=== PATIENT | male | born 1970 | race Caucasian/White ===

== ENCOUNTER → 2017-12-15 | Outpatient (CLI) | payer SELFPAY ==
--- NOTE | 2017-12-15 09:50 | Diagnostic Imaging Report ---
INDICATION: Hepatitis C. FINDINGS: The pancreas is unremarkable. The liver is normal in size at 16.5 cm. No discrete liver mass is identified. The portal vein is patent and shows normal direction of flow. The gallbladder is without stones or sludge. No wall thickening or pericholecystic fluid is seen. There is no biliary ductal dilatation. The right kidney is unremarkable. There is no ascites. IMPRESSION: Unremarkable right upper quadrant ultrasound. Dictated by: Dictated on workstation # [id number]
--- NOTE | 2017-12-15 10:53 | Diagnostic Imaging Report ---
PROCEDURE: CT head without contrast. TECHNIQUE: Multiple contiguous axial images were obtained through the brain without the use of intravenous contrast. INDICATION: Memory loss. COMPARISON: No prior studies are available for comparison. FINDINGS: The ventricles and sulci are within normal limits. No sulcal effacement, midline shift or hemorrhage is detected. Cisterns are patent. The visualized paranasal sinuses demonstrate mucosal thickening of ethmoid air cells and the left maxillary sinus. IMPRESSION: 1. No acute intracranial process detected. 2. Paranasal sinus mucosal disease. Dictated by: Dictated on workstation # [id number]
== END ==
LOC: RAD 08:18
PROVIDERS: ATTEND Family Medicine
DX: R41.3 Other amnesia (principal); J32.9 Chronic sinusitis, unspecified; B19.20 Unspecified viral hepatitis C without hepatic coma
CPT/HCPCS: 70450; 76705

== ENCOUNTER 2019-03-14 17:15 | Emergency (ER) | payer SELFPAY ==
[~2019-03-14] VITALS: Ht 175.3 cm; Wt 66.7 kg
[2019-03-14] MEDS ORDERED: LACTATED RINGERS 1,000 ML IV ONE (17:38)
[2019-03-14] MEDS ORDERED: FAMOTIDINE 20MG/2ML IV (PEPCID) IV STA (17:38)
--- NOTE | 2019-03-14 17:43 | ED Abdominal Pain ---
General Chief Complaint: Abdominal/GI Problems Stated Complaint: STOMACH PAIN X 5 DAYS Nursing Triage Note: PATIENT AMBULATORY TO ER WITH COMPLAINT OF LOWER ABDOMINAL PAIN X 5 DAYS. PATIENT DENIES ANY NAUSEA, VOMITING OR DIARRHEA. Sepsis Screen: No Definite Risk Source of Information: Patient Exam Limitations: No Limitations (ASHA STARKS) History of Present Illness Date Seen by Provider: Mar 14, 2019 Time Seen by Provider: 17:30 Initial Comments Patient presents to ER by private conveyance with chief complaint of 5 days of abdominal pain in his midepigastric region that does not radiate anywhere. He says it's pretty much constant, 4-5 out of 10. He doesn't nausea vomiting yesterday. He does drink beer frequently and has been told the past she's had some liver damage as well as possibly hepatitis C within another doctor told him he did not have hepatitis. He does not follow with a doctor routinely. Has no history of pancreatitis. Does not think he has any other medical history is aware of. He did not try any antacids, Gas-X Tylenol or Motrin. He does take to aspirin and a because he doesn't want to of a heart attack but does not have a heart history. He's having any nausea right now. No fevers chills diarrhea. He did take some prunes and other fruit to try and have a bowel movement and has had several formed normal bowel movement that they did not improve the symptoms. If her foods do not make his symptoms any worse Nor does movement. He's had his appendix out and a ventral hernia repair. (ASHA STARKS) Allergies and Home Medications Allergies Coded Allergies: Penicillins (Unverified Allergy, Unknown, 03/20/15) Patient Home Medication List Home Medication List Reviewed: Yes (ASHA STARKS) Review of Systems Review of Systems Constitutional: No chills, No diaphoresis EENTM: No Blurred Vision, No Double Vision Respiratory: Denies Cough, Denies Shortness of Air Cardiovascular: Denies Chest Pain, Denies Lightheadedness Gastrointestinal: See HPI, Abdominal Pain; Denies Constipated, Denies Diarrhea Genitourinary: Denies Burning, Denies Discharge Musculoskeletal: No back pain, No joint pain Skin: No pruritus, No rash Psychiatric/Neurological: Denies Anxiety, Denies Depressed (ASHA STARKS) Past Xxppqul-Mlrrva-Muzjxh Hx Patient Social History Alcohol Use: Regular Use Alcohol Beverage of Choice: Beer Recreational Drug Use: No Smoking Status: Current Everyday Smoker Type Used: Cigarettes 2nd Hand Smoke Exposure: Yes Recent Foreign Travel: No Contact w/Someone Who Travel: No Recent Infectious Disease Expo: No Recent Hopitalizations: No (ASHA STARKS) Immunizations Up To Date Tetanus Booster (TDap): Unknown PED Vaccines UTD: Yes (ASHA STARKS) Seasonal Allergies Seasonal Allergies: Yes (ASHA STARKS) Past Medical History Surgeries: Yes (HERNIA REPAIR) Appendectomy, Orthopedic, Tonsillectomy Respiratory: No Cardiac: No Neurological: No Reproductive Disorders: No Gastrointestinal: No Musculoskeletal: No Endocrine: No Cancer: No Psychosocial: No Integumentary: No Blood Disorders: No (ASHA STARKS) Family Medical History Patient reports no known family medical history. Physical Exam Vital Signs Vital Signs - First Documented 03/14/19 17:21 Temp 98.5 Pulse 96 Resp 18 B/P (MAP) 152/95 (114) Pulse Ox 96 (BERNOT,JASON) Vital Signs Capillary Refill : Less Than 3 Seconds (ASHA STARKS) Height/Weight/BMI Height: 5'9.00" Weight: 147lbs. 4.0oz. [id number]; BMI Method:Stated General Appearance: WD/WN, no apparent distress (smiles) HEENT: PERRL/EOMI, normal ENT inspection, pharynx normal Respiratory: no respiratory distress, no accessory muscle use Cardiovascular: normal peripheral pulses, regular rate, rhythm, no edema Peripheral Pulses: 2+ Dorsalis Pedis (R), 2+ Left Dors-Pedis (L) Gastrointestinal: normal bowel sounds, soft, no organomegaly; No rebound; tenderness (midepigastric region but no Wylie sign. 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, alert, oriented x 3 Skin: normal color, warm/dry (ASHA STARKS) Progress/Results/Core Measures Results/Orders Lab Results Laboratory Tests Test 03/14/19 17:36 03/14/19 17:42 Range/Units White Blood Count 6.2 4.3-11.0 10^3/uL Red Blood Count 4.57 4.35-5.85 10^6/uL Hemoglobin 15.6 13.3-17.7 G/DL Hematocrit 44 40-54 % Mean Corpuscular Volume 97 80-99 FL Mean Corpuscular Hemoglobin 34 25-34 PG Mean Corpuscular Hemoglobin Concent 35 32-36 G/DL Red Cell Distribution Width 13.8 10.0-14.5 % Platelet Count 92 L 130-400 10^3/uL Mean Platelet Volume 9.3 7.4-10.4 FL Neutrophils (%) (Auto) 71 42-75 % Lymphocytes (%) (Auto) 20 12-44 % Monocytes (%) (Auto) 8 0-12 % Eosinophils (%) (Auto) 1 0-10 % Basophils (%) (Auto) 1 0-10 % Neutrophils # (Auto) 4.3 1.8-7.8 X 10^3 Lymphocytes # (Auto) 1.3 1.0-4.0 X 10^3 Monocytes # (Auto) 0.5 0.0-1.0 X 10^3 Eosinophils # (Auto) 0.0 0.0-0.3 10^3/uL Basophils # (Auto) 0.0 0.0-0.1 10^3/uL Prothrombin Time 12.6 12.2-14.7 SEC INR Comment 0.9 0.8-1.4 Activated Partial Thromboplast Time 27 24-35 SEC Sodium Level 138 135-145 MMOL/L Potassium Level 3.3 L 3.6-5.0 MMOL/L Chloride Level 101 98-107 MMOL/L Carbon Dioxide Level 21 21-32 MMOL/L Anion Gap 16 H 5-14 MMOL/L Blood Urea Nitrogen 8 7-18 MG/DL Creatinine 0.89 0.60-1.30 MG/DL Estimat Glomerular Filtration Rate > 60 BUN/Creatinine Ratio 9 Glucose Level 189 H 70-105 MG/DL Calcium Level 9.4 8.5-10.1 MG/DL Corrected Calcium 9.0 8.5-10.1 MG/DL Magnesium Level 1.9 1.8-2.4 MG/DL Total Bilirubin 0.9 0.1-1.0 MG/DL Aspartate Amino Transf (AST/SGOT) 200 H 5-34 U/L Alanine Aminotransferase (ALT/SGPT) 133 H 0-55 U/L Alkaline Phosphatase 112 40-136 U/L C-Reactive Protein High Sensitivity 0.63 H 0.00-0.50 MG/DL Total Protein 7.9 6.4-8.2 GM/DL Albumin 4.5 3.2-4.5 GM/DL Lipase 516 H 8-78 U/L Serum Alcohol 313 *H <10 MG/DL Urine Color YELLOW Urine Clarity CLEAR Urine pH 7 5-9 Urine Specific [place] 1.005 L 1.016-1.022 Urine Protein 1+ H NEGATIVE Urine Glucose (UA) NEGATIVE NEGATIVE Urine Ketones NEGATIVE NEGATIVE Urine Nitrite NEGATIVE NEGATIVE Urine Bilirubin NEGATIVE NEGATIVE Urine Urobilinogen NORMAL NORMAL MG/DL Urine Leukocyte Esterase NEGATIVE NEGATIVE Urine RBC (Auto) NEGATIVE NEGATIVE Urine RBC NONE /HPF Urine WBC NONE /HPF Urine Squamous Epithelial Cells RARE /HPF Urine Crystals NONE /LPF Urine Bacteria NEGATIVE /HPF Urine Casts NONE /LPF Urine Mucus NEGATIVE /LPF Urine Culture Indicated NO Urine Opiates Screen NEGATIVE NEGATIVE Urine Oxycodone Screen NEGATIVE NEGATIVE Urine Methadone Screen NEGATIVE NEGATIVE Urine Propoxyphene Screen NEGATIVE NEGATIVE Urine Barbiturates Screen NEGATIVE NEGATIVE Ur Tricyclic Antidepressants Screen NEGATIVE NEGATIVE Urine Phencyclidine Screen NEGATIVE NEGATIVE Urine Amphetamines Screen NEGATIVE NEGATIVE Urine Methamphetamines Screen NEGATIVE NEGATIVE Urine Benzodiazepines Screen NEGATIVE NEGATIVE Urine Cocaine Screen NEGATIVE NEGATIVE Urine Cannabinoids Screen NEGATIVE NEGATIVE (JASON SILVA) Medications Given in ED (JASON SILVA) Vital Signs/I&O 03/14/19 03/14/19 17:21 18:50 Temp 98.5 Pulse 96 87 Resp 18 16 B/P (MAP) 152/95 (114) 144/96 (112) Pulse Ox 96 97 (JASON SILVA) Blood Pressure Mean: 114 Progress Progress Note : Time: 18:08 Progress Note Possible pancreatitis. Gastritis. We'll order a GI cocktail to start which the patient remarks did help but didn't take all of his discomfort away. We'll give him some fluids in case it is pancreatitis and check labs to include urinalysis , UDS. (ASHA STARKS) Progress Note : Progress Note 1818: I have informed the patient and his laboratory findings and the need for a CT scan of his abdomen and pelvis. He agreed to this at this time. CT was ordered. 183: Nursing staff reports that patient wishes to leave the hospital AGAINST MEDICAL ADVICE. This was prior to his CT scan being completed. The patient was informed of the benefits of staying and risks of leaving and agrees to those risks. AMA papers were signed. (JASON SILVA) Transfer of Care Time: 18:09 Care transferred to: Jason Lei nurse practitioner (ASHA STARKS) Departure Impression Primary Impression: Alcoholism /alcohol abuse Additional Impressions: Pancreatitis Left against medical advice Disposition: 07 AGAINST MEDICAL ADVICE Condition: Against Medical Advice Departure-Patient Inst. Referrals: NO,LOCAL PHYSICIAN (PCP/Family) Primary Care Physician ASHA STARKS Mar 14, 2019 17:43 JASON SILVA Mar 14, 2019 19:28
[2019-03-14] MEDS ORDERED: LIDOCAINE 2% VISCOUS 15 ML UDC PO ONE (17:45)
[2019-03-14] MEDS ORDERED: ANTACID SUSP 30 ML UDC (MYLANTA) PO ONE (17:45)
[2019-03-14 17:48] LABS: BILIRUBIN,URINE NEGATIVE (NEGATIVE); CLARITY,URINE CLEAR; COLOR,URINE YELLOW; GLUCOSE, URINE (UA) NEGATIVE (NEGATIVE); KETONES,URINE NEGATIVE (NEGATIVE); LEUKOCYTE ESTERASE ,URINE NEGATIVE (NEGATIVE); NITRITE,URINE NEGATIVE (NEGATIVE); PH,URINE 7 (5-9); PROTEIN,URINE 1+ (NEGATIVE); UROBILINOGEN,URINE NORMAL (NORMAL)
[2019-03-14 17:54] LABS: BASOPHILS % (AUTO) 1 % (0-10); EOSINOPHILS % (AUTO) 1 % (0-10); HEMATOCRIT 44 % (40-54); HEMOGLOBIN 15.6 G/DL (13.3-17.7); LYMPHOCYTES # (AUTO) 1.3 X 10^3 (1.0-4.0); LYMPHOCYTES % (AUTO) 20 % (12-44); MEAN CORPUSCULAR HEMOGLOBIN 34 PG (25-34); MEAN CORPUSCULAR HGB CONC 35 G/DL (32-36); MEAN CORPUSCULAR VOLUME 97 FL (80-99); MEAN PLATELET VOLUME 9.3 FL (7.4-10.4); MONOCYTES # (AUTO) 0.5 X 10^3 (0.0-1.0); MONOCYTES % (AUTO) 8 % (0-12); NEUTROPHILS # (AUTO) 4.3 X 10^3 (1.8-7.8); NEUTROPHILS % (AUTO) 71 % (42-75); PLATELET COUNT 92 10^3/uL (130-400); RED CELL DISTRIBUTION WIDTH 13.8 % (10.0-14.5); WHITE BLOOD COUNT 6.2 10^3/uL (4.3-11.0)
[2019-03-14 17:56] LABS: BACTERIA,URINE NEGATIVE /HPF; SQUAMOUS EPITHELIAL CELL,UR RARE /HPF
[2019-03-14 18:00] LABS: INR 0.9 (0.8-1.4); PROTHROMBIN TIME PATIENT 12.6 SEC (12.2-14.7)
[2019-03-14 18:09] LABS: ALANINE AMINOTRANSFERASE 133 U/L (0-55); ALBUMIN 4.5 GM/DL (3.2-4.5); ALKALINE PHOSPHATASE 112 U/L (40-136); BILIRUBIN,TOTAL 0.9 MG/DL (0.1-1.0); BUN/CREATININE RATIO 9; CALCIUM 9.4 MG/DL (8.5-10.1); CARBON DIOXIDE 21 MMOL/L (21-32); CHLORIDE 101 MMOL/L (98-107); CREATININE SERUM 0.89 MG/DL (0.60-1.30); GFR ESTIMATED > 60; GLUCOSE 189 MG/DL (70-105); LIPASE 516 U/L (8-78); MAGNESIUM 1.9 MG/DL (1.8-2.4); POTASSIUM 3.3 MMOL/L (3.6-5.0); SODIUM 138 MMOL/L (135-145); TOTAL PROTEIN 7.9 GM/DL (6.4-8.2)
[2019-03-14 18:09] LABS: AMPHETAMINE SCREEN, URINE NEGATIVE (NEGATIVE); BARBITURATE SCREEN URINE NEGATIVE (NEGATIVE); BENZODIAZEPINES SCREEN URINE NEGATIVE (NEGATIVE); CANNABINOID SCREEN, URINE NEGATIVE (NEGATIVE); COCAINE SCREEN URINE NEGATIVE (NEGATIVE); METHADONE STAT NEGATIVE (NEGATIVE); METHAMPHETAMINE SCREEN URINE S NEGATIVE (NEGATIVE); OPIATE SCREEN URINE NEGATIVE (NEGATIVE); OXYCODONE STAT NEGATIVE (NEGATIVE); PROPOXYPHENE STAT NEGATIVE (NEGATIVE); TRICYCLIC ANTIDEPRESSANTS SCRE NEGATIVE (NEGATIVE)
--- NOTE | 2019-03-14 18:48 | NUR ---
pt to ED desk stating he needs to leave d/t his sister being in waiting area waiting for him, pt states he wishes to sign out of ED AMA
[2019-03-14 18:50] VITALS: BP 144/96
== END 2019-03-14 18:49 | disposition left against medical advice (07) ==
LOC: EDUNIT# 17:15 → ER 17:16
DX: F10.129 Alcohol abuse with intoxication, unspecified (principal); K85.90 Acute pancreatitis without necrosis or infection, unspecified; F17.210 Nicotine dependence, cigarettes, uncomplicated; Z79.82 Long term (current) use of aspirin; Z88.0 Allergy status to penicillin; Z90.49 Acquired absence of other specified parts of digestive tract; Z98.890 Other specified postprocedural states; Z90.89 Acquired absence of other organs
CPT/HCPCS: 36415; 80053; 80306; 80320; 81000; 83690; 83735; 85025; 85610; 85730; 86141; 96374

== ENCOUNTER 2020-04-05 07:20 | Emergency (ER) | payer SELFPAY ==
[~2020-04-05] VITALS: Ht 175 cm; Wt 72.2 kg
[2020-04-05] MEDS ORDERED: LEVO25TA5 (07:38)
[2020-04-05] MEDS ORDERED: LACTATED RINGERS 1,000 ML IV ONE (07:59)
[2020-04-05 08:06] LABS: BASOPHILS # (AUTO) 0.1 10^3/uL (0.0-0.1); BASOPHILS % (AUTO) 1 % (0-10); EOSINOPHILS # (AUTO) 0.1 10^3/uL (0.0-0.3); EOSINOPHILS % (AUTO) 1 % (0-10); HEMATOCRIT 45 % (40-54); HEMOGLOBIN 16.4 G/DL (13.3-17.7); LYMPHOCYTES # (AUTO) 3.2 X 10^3 (1.0-4.0); LYMPHOCYTES % (AUTO) 44 % (12-44); MEAN CORPUSCULAR HEMOGLOBIN 33 PG (25-34); MEAN CORPUSCULAR HGB CONC 36 G/DL (32-36); MEAN CORPUSCULAR VOLUME 91 FL (80-99); MEAN PLATELET VOLUME 9.2 FL (7.4-10.4); MONOCYTES % (AUTO) 14 % (0-12); NEUTROPHILS # (AUTO) 2.9 X 10^3 (1.8-7.8); NEUTROPHILS % (AUTO) 40 % (42-75); PLATELET COUNT 319 10^3/uL (130-400); RED CELL DISTRIBUTION WIDTH 13.5 % (10.0-14.5); WHITE BLOOD COUNT 7.2 10^3/uL (4.3-11.0)
[2020-04-05 08:10] LABS: ALBUMIN 4.4 GM/DL (3.2-4.5); CHLORIDE 102 MMOL/L (98-107); POTASSIUM 3.3 MMOL/L (3.6-5.0); SODIUM 136 MMOL/L (135-145)
[2020-04-05 08:11] LABS: AMYLASE 35 U/L (25-125)
[2020-04-05 08:12] LABS: CALCIUM 8.8 MG/DL (8.5-10.1)
[2020-04-05 08:13] LABS: GLUCOSE 136 MG/DL (70-105)
[2020-04-05 08:14] LABS: CARBON DIOXIDE 20 MMOL/L (21-32)
[2020-04-05 08:15] LABS: BILIRUBIN,TOTAL 0.5 MG/DL (0.1-1.0)
[2020-04-05 08:16] LABS: ALKALINE PHOSPHATASE 77 U/L (40-136)
[2020-04-05 08:17] LABS: CREATININE SERUM 0.85 MG/DL (0.60-1.30); GFR ESTIMATED > 60
[2020-04-05 08:18] LABS: BUN/CREATININE RATIO 12
[2020-04-05 08:19] LABS: ALANINE AMINOTRANSFERASE 38 U/L (0-55)
[2020-04-05 08:20] LABS: LIPASE 47 U/L (8-78)
[2020-04-05 08:27] LABS: BILIRUBIN,URINE NEGATIVE (NEGATIVE); CLARITY,URINE CLEAR; COLOR,URINE YELLOW; GLUCOSE, URINE (UA) NEGATIVE (NEGATIVE); KETONES,URINE NEGATIVE (NEGATIVE); LEUKOCYTE ESTERASE ,URINE NEGATIVE (NEGATIVE); NITRITE,URINE NEGATIVE (NEGATIVE); PH,URINE 6.5 (5-9); PROTEIN,URINE NEGATIVE (NEGATIVE)
[2020-04-05 08:38] LABS: BACTERIA,URINE NEGATIVE /HPF
[2020-04-05] MEDS ORDERED: fentaNYL INJECTION 100 MCG/2 ML AMP IVP STA (08:39)
[2020-04-05 08:44] LABS: AMPHETAMINE SCREEN, URINE NEGATIVE (NEGATIVE); BARBITURATE SCREEN URINE NEGATIVE (NEGATIVE); BENZODIAZEPINES SCREEN URINE NEGATIVE (NEGATIVE); CANNABINOID SCREEN, URINE NEGATIVE (NEGATIVE); COCAINE SCREEN URINE NEGATIVE (NEGATIVE); METHAMPHETAMINE SCREEN URINE S NEGATIVE (NEGATIVE); OPIATE SCREEN URINE NEGATIVE (NEGATIVE); TRICYCLIC ANTIDEPRESSANTS SCRE NEGATIVE (NEGATIVE)
[2020-04-05 08:45] LABS: METHADONE STAT NEGATIVE (NEGATIVE); OXYCODONE STAT NEGATIVE (NEGATIVE); PROPOXYPHENE STAT NEGATIVE (NEGATIVE)
--- NOTE | 2020-04-05 08:57 | ED Abdominal Pain ---
General Chief Complaint: Abdominal/GI Problems Stated Complaint: LOWER LEFT STOMACH PAIN Nursing Triage Note: ARRIVED VIA AMB TO ROOM 06 WITHOUT DIFFICULTY. COMPLAINS OF LEFT LOWER ABD PAIN X2 WEEKS. HX OF PANCREATITIS AND ETOH. STATES HE LEFT AMA THE LAST TIME HE WAS HERE AND ENDED UP GOING TO A HOSPITAL IN [place] AND WAS DX. Sepsis Screen: No Definite Risk Source of Information: Patient Exam Limitations: No Limitations History of Present Illness Date Seen by Provider: April 05, 2020 Time Seen by Provider: 07:50 Initial Comments Here with complaint of mid abdominal pain that has been going on worse this morning but over the last 2 weeks. States that he drinks a lot of alcohol daily. Has history of greater than case of day here daily. He's never had seizure with withdrawal. Reports that he will start drinking each day when he started shaking. Denies nausea, vomiting or diarrhea. No report of blood in his stool. N o report of fever. Main complaint is abdominal pain. Timing/Duration: 1 Week, Getting Worse Severity/Quality: Moderate, Aching Location: Epigastric Radiation: No Radiation Activities at Onset: None Modifying Factors: Worsens With Eating Associated Symptoms: No Chest Pain, No Fever/Chills; Fatigue; No Nausea/Vomiting, No Shortness of Air, No Swelling/Mass in Abdomen, No Weakness Allergies and Home Medications Allergies Coded Allergies: Penicillins (Unverified Allergy, Unknown, 03/20/15) Patient Home Medication List Home Medication List Reviewed: Yes Review of Systems Review of Systems Constitutional: see HPI; No chills, No fever EENTM: No Symptoms Reported Respiratory: No Symptoms Reported Cardiovascular: No Symptoms Reported Gastrointestinal: See HPI, Abdominal Pain; Denies Diarrhea, Denies Nausea, Denies Vomiting Genitourinary: No Symptoms Reported Musculoskeletal: no symptoms reported Skin: no symptoms reported All Other Systems Reviewed Negative Unless Noted: Yes Past Tvlyozv-Nupdce-Zyxbfd Hx Past Med/Social Hx: Reviewed Nursing Past Med/Soc Hx Patient Social History Alcohol Use: Regular Use Number of Drinks Today: AA Alcohol Beverage of Choice: Beer, Whiskey Recreational Drug Use: No Smoking Status: Current Everyday Smoker Type Used: Cigarettes 2nd Hand Smoke Exposure: Yes Recent Foreign Travel: No Contact w/Someone Who Travel: No Recent Infectious Disease Expo: No Recent Hopitalizations: No Immunizations Up To Date Tetanus Booster (TDap): Unknown PED Vaccines UTD: Yes Seasonal Allergies Seasonal Allergies: Yes Past Medical History Surgeries: Yes (HERNIA REPAIR) Appendectomy, Orthopedic, Tonsillectomy Respiratory: No Cardiac: No Neurological: No Reproductive Disorders: No Genitourinary: No Gastrointestinal: Yes Pancreatitis Musculoskeletal: No Endocrine: No HEENT: No Cancer: No Psychosocial: No Integumentary: No Blood Disorders: No Family Medical History Reviewed Nursing Family Hx Patient reports no known family medical history. No Pertinent Family Hx Physical Exam Vital Signs Vital Signs - First Documented 04/05/20 07:25 Temp 37.2 Pulse 110 Resp 16 B/P (MAP) 153/109 (124) Pulse Ox 96 O2 Delivery Room Air Capillary Refill : Less Than 3 Seconds Height/Weight/BMI Height: 5'9.00" Weight: 147lbs. 4.0oz. 66.491319yc; 23.00 BMI Method:Stated General Appearance: WD/WN, no apparent distress HEENT: PERRL/EOMI, pharynx normal Neck: full range of motion, supple Respiratory: lungs clear, normal breath sounds Cardiovascular: no murmur, tachycardia Gastrointestinal: soft; No guarding, No rebound; tenderness (mid abdomen) Extremities: non-tender, normal inspection Back: normal inspection, no CVA tenderness, no vertebral tenderness Neurologic/Psychiatric: alert, oriented x 3 Skin: normal color, warm/dry Progress/Results/Core Measures Results/Orders Lab Results Laboratory Tests Test 04/05/20 07:40 04/05/20 08:20 Range/Units White Blood Count 7.2 4.3-11.0 10^3/uL Red Blood Count 4.98 4.35-5.85 10^6/uL Hemoglobin 16.4 13.3-17.7 G/DL Hematocrit 45 40-54 % Mean Corpuscular Volume 91 80-99 FL Mean Corpuscular Hemoglobin 33 25-34 PG Mean Corpuscular Hemoglobin Concent 36 32-36 G/DL Red Cell Distribution Width 13.5 10.0-14.5 % Platelet Count 319 130-400 10^3/uL Mean Platelet Volume 9.2 7.4-10.4 FL Neutrophils (%) (Auto) 40 L 42-75 % Lymphocytes (%) (Auto) 44 12-44 % Monocytes (%) (Auto) 14 H 0-12 % Eosinophils (%) (Auto) 1 0-10 % Basophils (%) (Auto) 1 0-10 % Neutrophils # (Auto) 2.9 1.8-7.8 X 10^3 Lymphocytes # (Auto) 3.2 1.0-4.0 X 10^3 Monocytes # (Auto) 1.0 0.0-1.0 X 10^3 Eosinophils # (Auto) 0.1 0.0-0.3 10^3/uL Basophils # (Auto) 0.1 0.0-0.1 10^3/uL Sodium Level 136 135-145 MMOL/L Potassium Level 3.3 L 3.6-5.0 MMOL/L Chloride Level 102 98-107 MMOL/L Carbon Dioxide Level 20 L 21-32 MMOL/L Anion Gap 14 5-14 MMOL/L Blood Urea Nitrogen 10 7-18 MG/DL Creatinine 0.85 0.60-1.30 MG/DL Estimat Glomerular Filtration Rate > 60 BUN/Creatinine Ratio 12 Glucose Level 136 H 70-105 MG/DL Calcium Level 8.8 8.5-10.1 MG/DL Corrected Calcium 8.5 8.5-10.1 MG/DL Total Bilirubin 0.5 0.1-1.0 MG/DL Aspartate Amino Transf (AST/SGOT) 45 H 5-34 U/L Alanine Aminotransferase (ALT/SGPT) 38 0-55 U/L Alkaline Phosphatase 77 40-136 U/L C-Reactive Protein High Sensitivity 0.08 0.00-0.50 MG/DL Total Protein 8.0 6.4-8.2 GM/DL Albumin 4.4 3.2-4.5 GM/DL Amylase Level 35 25-125 U/L Lipase 47 8-78 U/L Serum Alcohol 304 *H <10 MG/DL Urine Color YELLOW Urine Clarity CLEAR Urine pH 6.5 5-9 Urine Specific [place] <=1.005 1.016-1.022 Urine Protein NEGATIVE NEGATIVE Urine Glucose (UA) NEGATIVE NEGATIVE Urine Ketones NEGATIVE NEGATIVE Urine Nitrite NEGATIVE NEGATIVE Urine Bilirubin NEGATIVE NEGATIVE Urine Urobilinogen 0.2 < = 1.0 MG/DL Urine Leukocyte Esterase NEGATIVE NEGATIVE Urine RBC (Auto) NEGATIVE NEGATIVE Urine RBC NONE /HPF Urine WBC NONE /HPF Urine Crystals NONE /LPF Urine Bacteria NEGATIVE /HPF Urine Casts NONE /LPF Urine Mucus NEGATIVE /LPF Urine Culture Indicated NO Urine Opiates Screen NEGATIVE NEGATIVE Urine Oxycodone Screen NEGATIVE NEGATIVE Urine Methadone Screen NEGATIVE NEGATIVE Urine Propoxyphene Screen NEGATIVE NEGATIVE Urine Barbiturates Screen NEGATIVE NEGATIVE Ur Tricyclic Antidepressants Screen NEGATIVE NEGATIVE Urine Phencyclidine Screen NEGATIVE NEGATIVE Urine Amphetamines Screen NEGATIVE NEGATIVE Urine Methamphetamines Screen NEGATIVE NEGATIVE Urine Benzodiazepines Screen NEGATIVE NEGATIVE Urine Cocaine Screen NEGATIVE NEGATIVE Urine Cannabinoids Screen NEGATIVE NEGATIVE My Orders Orders - TERA PEREZ MD Amylase (04/05/20 07:59) Cbc With Automated Diff (04/05/20 07:59) Comprehensive Metabolic Panel (04/05/20 07:59) Hs C Reactive Protein (04/05/20 07:59) Drug Screen Stat (Urine) (04/05/20 07:59) Lipase (04/05/20 07:59) Ua Culture If Indicated (04/05/20 07:59) Ed Iv/Invasive Line Start (04/05/20 07:59) Lactated Ringers (Lr 1000 Ml Iv Solution (04/05/20 07:59) Ct Abdomen/Pelvis W (04/05/20 08:27) Fentanyl Injection (Sublimaze Injection (04/05/20 08:39) Alcohol (04/05/20 08:50) Iohexol Injection (Omnipaque 350 Mg/Ml 1 (04/05/20 09:00) Received Contrast (Hold Metformin- Contr (04/05/20 09:00) Ns (Ivpb) (Sodium Chloride 0.9% Ivpb Bag (04/05/20 09:00) Medications Given in ED Current Medications Medications Dose Ordered Sig/Valeria Route Start Time Stop Time Status Last Admin Dose Admin Iohexol 91 ml ONCE ONCE IV 04/05/20 09:00 04/05/20 09:01 DC 04/05/20 09:08 91 ML Lactated Ringer's 1,000 ml @ 0 mls/hr Q0M ONCE IV 04/05/20 07:59 04/05/20 08:07 DC 04/05/20 08:09 1,000 MLS/HR Sodium Chloride 100 ml ONCE ONCE IV 04/05/20 09:00 04/05/20 09:01 DC 04/05/20 09:08 80 ML Vital Signs/I&O 04/05/20 07:25 Temp 37.2 Pulse 110 Resp 16 B/P (MAP) 153/109 (124) Pulse Ox 96 O2 Delivery Room Air Blood Pressure Mean: 124 Progress Progress Note : Progress Note Seen and evaluated. IV, labs, UA, LR [address] abdomen pelvis and fentanyl 50 g IV ordered later. Monitor patient. 1027: Labs and CT reviewed. No acute findings. I did discuss with the patient at length regarding alcoholism, gastritis and turns about the adverse effects of chronic alcohol abuse. Offered him information to a few programs in the area including the addiction treatment services at [facility]. He states he will follow up. Ordered outpatient Carafate and he was given information to call Dr. Stevenson for follow- up as he likely needs upper endoscopy. Patient states he would. Diagnostic Imaging Diagonstic Imaging: CT Plain Films/CT/US/NM/MRI: abdomen, pelvis Comments [facility], [place] NAME: MATEO [facility] REC#: [id number] PT STATUS: REG ER : 1970 PHYSICIAN: TERA PEREZ MD ADMIT DATE: 04/05/20/ER Draft Date of Exam:04/05/20 CT ABDOMEN/PELVIS W PROCEDURE: CT abdomen and pelvis with contrast. TECHNIQUE: Multiple contiguous axial images were obtained through the abdomen and pelvis after administration of intravenous contrast. Auto Exposure Controls were utilized during the CT exam to meet ALARA standards for radiation dose reduction. INDICATION: Abdominal pain and questionable pancreatitis. No prior studies are available for comparison. The lung bases are clear. Liver does show some mild generalized low density consistent with hepatic steatosis. No discrete liver mass is detected. The gallbladder is unremarkable. No biliary ductal dilatation is seen. The pancreas demonstrates homogeneous parenchymal enhancement. No definite peripancreatic inflammatory changes or peripancreatic fluid collection is seen. The spleen is unremarkable. No adrenal mass is detected. Kidneys are unremarkable. No hydronephrosis is detected. The aorta is non-aneurysmal. Bowel loops appear to be nonobstructive. There is diverticulosis of the descending and sigmoid colon but no evidence of acute diverticulitis. There is no free fluid or fluid collection identified. The bladder is unremarkable. No definite abdominal or pelvic lymphadenopathy is seen. IMPRESSION: 1. No definite CT evidence of acute pancreatitis. 2. Hepatic steatosis. 3. Uncomplicated diverticulosis. Dictated on workstation # [id number] Dict: 04/05/20 0921 Trans: 04/05/20 0927 [id number] Interpreted by: VERN MELENDEZ MD Electronically signed by: Departure Impression Primary Impression: Upper abdominal pain Additional Impression: Alcohol abuse Disposition: 01 HOME, SELF-CARE Condition: Stable Departure-Patient Inst. Decision time for Depature: 10:30 Referrals: OLGA STEVENSON DO NO,LOCAL PHYSICIAN (PCP) Primary Care Physician GUSTAVO YAN MD Patient Instructions: Alcohol Abuse and Alcoholism (DC) Add. Discharge Instructions: All discharge instructions reviewed with patient and/or family. Voiced understanding. Follow-up with addiction treatment services and other services given to you to help with over coming alcoholism. Follow-up with Dr. Stevenson for recheck and further evaluation and to discuss possible upper endoscopy (scope). Call his office today for appointment. Return for worse pain, fever, vomiting, weakness, breathing problems or other concerns as needed. Take medications as directed. Scripts Sucralfate (Sucralfate) 1 Gm Tablet 1 GM PO ACHS, #56 TAB 1 Refill Chew tablet to a slurry and then swallow Prov: TERA PEREZ MD 04/05/20 Copy Copies To 1: OLGA STEVENSON TIMOTHY D MD April 05, 2020 08:57
[2020-04-05] MEDS ORDERED: HOLD METFORMIN - RECEIVED CONTRAST 20 ML VIAL IV SCH (09:00)
[2020-04-05] MEDS ORDERED: NS 100 ML (IVPB) BAG IV ONE (09:00)
[2020-04-05] MEDS ORDERED: IOHEXOL 350 MG/ML 100 ML (OMNIPAQUE 350) VIAL IV ONE (09:00)
--- NOTE | 2020-04-05 09:27 | Diagnostic Imaging Report ---
PROCEDURE: CT abdomen and pelvis with contrast. TECHNIQUE: Multiple contiguous axial images were obtained through the abdomen and pelvis after administration of intravenous contrast. Auto Exposure Controls were utilized during the CT exam to meet ALARA standards for radiation dose reduction. INDICATION: Abdominal pain and questionable pancreatitis. No prior studies are available for comparison. The lung bases are clear. Liver does show some mild generalized low density consistent with hepatic steatosis. No discrete liver mass is detected. The gallbladder is unremarkable. No biliary ductal dilatation is seen. The pancreas demonstrates homogeneous parenchymal enhancement. No definite peripancreatic inflammatory changes or peripancreatic fluid collection is seen. The spleen is unremarkable. No adrenal mass is detected. Kidneys are unremarkable. No hydronephrosis is detected. The aorta is non-aneurysmal. Bowel loops appear to be nonobstructive. There is diverticulosis of the descending and sigmoid colon but no evidence of acute diverticulitis. There is no free fluid or fluid collection identified. The bladder is unremarkable. No definite abdominal or pelvic lymphadenopathy is seen. IMPRESSION: 1. No definite CT evidence of acute pancreatitis. 2. Hepatic steatosis. 3. Uncomplicated diverticulosis. Dictated by: Dictated on workstation # [id number]
[2020-04-05] MEDS ORDERED: SUCR1TAB PO (10:33)
[2020-04-05 10:39] VITALS: BP 153/109
--- NOTE | 2020-04-05 10:39 | NUR ---
Discharge instructions discussed with patient. Attempted to get a discharge set of vital signs, pt refused.
== END 2020-04-05 10:37 | disposition home or self-care (01) ==
LOC: EDUNIT# 07:20 → ER 07:22
DX: R10.10 Upper abdominal pain, unspecified (principal); F10.10 Alcohol abuse, uncomplicated; F17.210 Nicotine dependence, cigarettes, uncomplicated; Z88.0 Allergy status to penicillin; Y90.8 Blood alcohol level of 240 mg/100 ml or more
CPT/HCPCS: 36415; 74177; 80053; 80306; 80320; 81000; 82150; 83690; 85025; 86141

== ENCOUNTER 2020-04-14 18:16 | Emergency (ER) | payer SELFPAY ==
[~2020-04-14 18:16] MED LIST: LEVO25TA5; SUCR1TAB PO
--- NOTE | 2020-04-14 19:54 | NUR ---
PT WAS CALLING FOR TRIAGE AND NO ONE PRESENTED. THERE WAS NO ONE IN THE LOBBY AND REGISTRATION STATED HE DID NOT MENTION LEAVING.
== END 2020-04-14 19:54 | disposition left against medical advice (07) ==
LOC: EDUNIT# 18:16 → ER 18:17
DX: R10.9 Unspecified abdominal pain (principal)

== ENCOUNTER 2020-05-07 05:27 | Inpatient (IN) | payer SELFPAY ==
[~2020-05-07] VITALS: Ht 175.3 cm; Wt 72.1 kg
[~2020-05-07 05:27] MED LIST changes: -LEVO25TA5; +LEVO25TA5 PO
[2020-05-07] MEDS ORDERED: LACTATED RINGERS 1,000 ML IV ONE ×2 (05:36→07:41)
[2020-05-07 05:44] LABS: BASOPHILS % (AUTO) 0 % (0-10); EOSINOPHILS % (AUTO) 0 % (0-10); HEMATOCRIT 45 % (40-54); HEMOGLOBIN 15.6 G/DL (13.3-17.7); LYMPHOCYTES # (AUTO) 1.1 X 10^3 (1.0-4.0); LYMPHOCYTES % (AUTO) 8 % (12-44); MEAN CORPUSCULAR HEMOGLOBIN 33 PG (25-34); MEAN CORPUSCULAR HGB CONC 35 G/DL (32-36); MEAN CORPUSCULAR VOLUME 94 FL (80-99); MEAN PLATELET VOLUME 9.1 FL (7.4-10.4); MONOCYTES # (AUTO) 0.6 X 10^3 (0.0-1.0); MONOCYTES % (AUTO) 4 % (0-12); NEUTROPHILS # (AUTO) 12.1 X 10^3 (1.8-7.8); NEUTROPHILS % (AUTO) 87 % (42-75); PLATELET COUNT 332 10^3/uL (130-400); WHITE BLOOD COUNT 13.8 10^3/uL (4.3-11.0)
[2020-05-07] MEDS ORDERED: PANTOPRAZOLE 40 MG (PROTONIX) VIAL IV ONE (05:45)
[2020-05-07] MEDS ORDERED: ONDANSETRON 4 MG/2 ML (SDV) Z0FRAN IVP ONE (05:45)
[2020-05-07 05:54] LABS: CHLORIDE 98 MMOL/L (98-107); POTASSIUM 3.9 MMOL/L (3.6-5.0)
[2020-05-07 05:55] LABS: ALBUMIN 4.6 GM/DL (3.2-4.5); SODIUM 137 MMOL/L (135-145)
[2020-05-07 05:56] LABS: CALCIUM 9.4 MG/DL (8.5-10.1)
[2020-05-07 05:57] LABS: AMYLASE 544 U/L (25-125); GLUCOSE 158 MG/DL (70-105)
[2020-05-07 05:58] LABS: CARBON DIOXIDE 16 MMOL/L (21-32); TOTAL PROTEIN 8.6 GM/DL (6.4-8.2)
[2020-05-07 05:59] LABS: BILIRUBIN,TOTAL 0.9 MG/DL (0.1-1.0)
[2020-05-07 06:01] LABS: ALKALINE PHOSPHATASE 87 U/L (40-136); CREATININE SERUM 1.05 MG/DL (0.60-1.30); GFR ESTIMATED > 60
[2020-05-07 06:02] LABS: BUN/CREATININE RATIO 11
[2020-05-07 06:04] LABS: ALANINE AMINOTRANSFERASE 24 U/L (0-55); MAGNESIUM 1.2 MG/DL (1.6-2.4)
[2020-05-07 06:12] LABS: INR 0.9 (0.8-1.4); PROTHROMBIN TIME PATIENT 12.9 SEC (12.2-14.7)
--- NOTE | 2020-05-07 06:13 | ED GI ---
General Chief Complaint: Abdominal/GI Problems Stated Complaint: ABD PAIN Source of Information: Patient History of Present Illness Date Seen by Provider: May 07, 2020 Time Seen by Provider: 05:55 Initial Comments 49-year-old male presents with epigastric pain and stomach pain. Patient has a known alcoholic. He reports that for like 2 days he has had stomach pain mainly in the epigastric region. He has been unable keep anything down. He started "shaking" about 6-12 hours ago. He does report that he's had a history of "DTs" in the past patient reports he hasn't drank in at least 24 hours. 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 Patient reports some mild decrease in urine. No cough, chest pain. Allergies and Home Medications Allergies Coded Allergies: Penicillins (Unverified Allergy, Unknown, 03/20/15) Home Medications Acetaminophen 500 Mg Tablet, 1,000 MG PO Q8H PRN for PAIN-MILD (1-4), (Reported) Levothyroxine Sodium 25 Mcg Tablet, 25 MCG PO DAILY, (Reported) LAST FILLED 01-20-2020 #90 Patient Home Medication List Home Medication List Reviewed: Yes Review of Systems Review of Systems Constitutional: No dizziness, No fever Respiratory: Denies Cough, Denies Shortness of Air Cardiovascular: Denies Chest Pain, Denies Irregular Heart Rate Gastrointestinal: See HPI, Abdominal Pain, Nausea, Vomiting Genitourinary: See HPI Musculoskeletal: no symptoms reported Skin: no symptoms reported Psychiatric/Neurological: See HPI Past Aruqvxh-Wdbqhr-Vbxtjm Hx Past Med/Social Hx: Reviewed Nursing Past Med/Soc Hx Patient Social History Alcohol Beverage of Choice: Beer, Whiskey Type Used: Cigarettes 2nd Hand Smoke Exposure: Yes Recent Hopitalizations: No Immunizations Up To Date Tetanus Booster (TDap): Unknown PED Vaccines UTD: Yes Seasonal Allergies Seasonal Allergies: Yes Past Medical History Surgeries: Yes (HERNIA REPAIR) Appendectomy, Orthopedic, Tonsillectomy Respiratory: No Cardiac: No Neurological: No Reproductive Disorders: No Genitourinary: No Gastrointestinal: Yes Pancreatitis Musculoskeletal: No Endocrine: No HEENT: No Cancer: No Psychosocial: No Integumentary: No Blood Disorders: No Family Medical History Patient reports no known family medical history. No Pertinent Family Hx Physical Exam Vital Signs Vital Signs - First Documented 05/07/20 05:32 Temp 36.8 Pulse 142 Resp 24 B/P (MAP) 147/113 (124) Pulse Ox 98 Capillary Refill : Height/Weight/BMI Height: 5'9.00" Weight: 147lbs. 4.0oz. 66.167643ni; 23.00 BMI Method:Stated General Appearance: mild distress Respiratory: chest non-tender, lungs clear, normal breath sounds Cardiovascular: normal peripheral pulses, tachycardia Gastrointestinal: soft; No rebound; tenderness (diffuse bit epigastric more than rest of the abdomen) Extremities: non-tender Neurologic/Psychiatric: alert, normal mood/affect, oriented x 3, other (mild tremors) Skin: normal color, warm/dry Progress/Results/Core Measures Results/Orders Lab Results Laboratory Tests Test 05/07/20 05:32 Range/Units White Blood Count 13.8 H 4.3-11.0 10^3/uL Red Blood Count 4.74 4.35-5.85 10^6/uL Hemoglobin 15.6 13.3-17.7 G/DL Hematocrit 45 40-54 % Mean Corpuscular Volume 94 80-99 FL Mean Corpuscular Hemoglobin 33 25-34 PG Mean Corpuscular Hemoglobin Concent 35 32-36 G/DL Red Cell Distribution Width 15.0 H 10.0-14.5 % Platelet Count 332 130-400 10^3/uL Mean Platelet Volume 9.1 7.4-10.4 FL Neutrophils (%) (Auto) 87 H 42-75 % Lymphocytes (%) (Auto) 8 L 12-44 % Monocytes (%) (Auto) 4 0-12 % Eosinophils (%) (Auto) 0 0-10 % Basophils (%) (Auto) 0 0-10 % Neutrophils # (Auto) 12.1 H 1.8-7.8 X 10^3 Lymphocytes # (Auto) 1.1 1.0-4.0 X 10^3 Monocytes # (Auto) 0.6 0.0-1.0 X 10^3 Eosinophils # (Auto) 0.0 0.0-0.3 10^3/uL Basophils # (Auto) 0.0 0.0-0.1 10^3/uL Prothrombin Time 12.9 12.2-14.7 SEC INR Comment 0.9 0.8-1.4 Activated Partial Thromboplast Time 29 24-35 SEC Sodium Level 137 135-145 MMOL/L Potassium Level 3.9 3.6-5.0 MMOL/L Chloride Level 98 98-107 MMOL/L Carbon Dioxide Level 16 L 21-32 MMOL/L Anion Gap 23 H 5-14 MMOL/L Blood Urea Nitrogen 12 7-18 MG/DL Creatinine 1.05 0.60-1.30 MG/DL Estimat Glomerular Filtration Rate > 60 BUN/Creatinine Ratio 11 Glucose Level 158 H 70-105 MG/DL Calcium Level 9.4 8.5-10.1 MG/DL Corrected Calcium 8.5-10.1 MG/DL Magnesium Level 1.2 L 1.6-2.4 MG/DL Total Bilirubin 0.9 0.1-1.0 MG/DL Aspartate Amino Transf (AST/SGOT) 29 5-34 U/L Alanine Aminotransferase (ALT/SGPT) 24 0-55 U/L Alkaline Phosphatase 87 40-136 U/L Total Protein 8.6 H 6.4-8.2 GM/DL Albumin 4.6 H 3.2-4.5 GM/DL Amylase Level 544 H 25-125 U/L Lipase 1153 H 8-78 U/L Acetaminophen Level < 10 L 10-30 UG/ML Serum Alcohol < 10 <10 MG/DL My Orders Orders - HERBERTH COHEN DO Lorazepam Injection (Ativan Injection) (05/07/20 06:15) Fentanyl Injection (Sublimaze Injection (05/07/20 07:00) Fentanyl Injection (Sublimaze Injection (05/07/20 07:15) Ed Iv/Invasive Line Start (05/07/20 07:41) Lactated Ringers (Lr 1000 Ml Iv Solution (05/07/20 07:41) Medications Given in ED Current Medications Medications Dose Ordered Sig/Valeria Route Start Time Stop Time Status Last Admin Dose Admin Fentanyl Citrate 25 mcg ONCE ONCE IVP 05/07/20 07:00 05/07/20 07:01 DC 05/07/20 06:53 25 MCG Fentanyl Citrate 50 mcg ONCE ONCE IVP 05/07/20 07:15 05/07/20 07:16 DC 05/07/20 07:33 50 MCG Lactated Ringer's 1,000 ml @ 0 mls/hr Q0M ONCE IV 05/07/20 05:36 05/07/20 05:39 DC 05/07/20 05:49 1,000 MLS/HR Lactated Ringer's 1,000 ml @ 0 mls/hr Q0M ONCE IV 05/07/20 07:41 05/07/20 07:43 DC 05/07/20 07:49 1,000 MLS/HR Lorazepam 2 mg ONCE ONCE IVP 05/07/20 06:15 05/07/20 06:16 DC 05/07/20 06:20 2 MG Ondansetron HCl 8 mg ONCE ONCE IVP 05/07/20 05:45 05/07/20 05:46 DC 05/07/20 05:49 8 MG Pantoprazole 40 mg ONCE ONCE IV 05/07/20 05:45 05/07/20 05:46 DC 05/07/20 05:49 40 MG Vital Signs/I&O 05/07/20 05:32 Temp 36.8 Pulse 142 Resp 24 B/P (MAP) 147/113 (124) Pulse Ox 98 Progress Progress Note : Progress Note Patient with severe pancreatitis. Likely induced due to his alcohol abuse along with some probable underlying gastritis. Patient will be admitted to the [facility] Dr. Thomas for further management. Patient was transferred in stable condition. Departure Communication (Admissions) Time/Spoke to Admitting Phy: 07:[address] Thomas, [facility] Impression Primary Impression: Pancreatitis Qualified Codes: K85.20 - Alcohol induced acute pancreatitis without necrosis or infection Additional Impression: Alcohol withdrawal Qualified Codes: F10.230 - Alcohol dependence with withdrawal, uncomplicated Disposition: 09 ADMITTED INPATIENT Condition: Stable Admissions Decision to Admit Reason: Admit from ER (General) Decision to Admit/Date: May 07, 2020 Time/Decision to Admit Time: 07:35 Departure-Patient Inst. Referrals: NO,LOCAL PHYSICIAN (PCP/Family) Primary Care Physician HERBERTH COHEN DO May 07, 2020 06:13
[2020-05-07] MEDS ORDERED: LORazepam INJ 2 MG/ML (ATIVAN) VIAL IVP ONE (06:15)
[2020-05-07 06:54] LABS: ACETAMINOPHEN < 10 UG/ML (10-30); LIPASE 1153 U/L (8-78)
[2020-05-07] MEDS ORDERED: fentaNYL INJECTION 100 MCG/2 ML AMP IVP ONE ×2 (07:00→07:15)
[2020-05-07] MEDS ORDERED: 1/2 NS IV SOLUTION 1,000 ML IV PRN (08:19)
[2020-05-07] MEDS ORDERED: ANTACID SUSP 30 ML UDC (MYLANTA) PO PRN (08:30)
[2020-05-07] MEDS ORDERED: LORazepam INJ 2 MG/ML (ATIVAN) VIAL IM/IV PRN (08:30)
[2020-05-07] MEDS ORDERED: SENNA W/DOCUSATE (SENOKOT S) TABLET PO PRN (08:30)
[2020-05-07] MEDS ORDERED: LORazepam 1 MG (ATIVAN) TAB PO PRN (08:30)
[2020-05-07] MEDS ORDERED: D5 1/2 NS 1000 ML IV SOLUTION 1,000 ML IV PRN (08:30)
[2020-05-07] MEDS ORDERED: ONDANSETRON 4 MG (ZOFRAN) ORAL DISSOLVE TAB SL PRN (08:30)
[2020-05-07 08:32] VITALS: BP 157/93
[2020-05-07] MEDS: fentaNYL INJECTION 100 MCG/2 ML AMP IV PRN ×7 (08:46→23:40)
[2020-05-07] MEDS: ONDANSETRON 4 MG/2 ML (SDV) Z0FRAN IV PRN ×2 (08:54→18:09)
[2020-05-07] MEDS: LACTATED RINGERS 1,000 ML IV SCH ×4 (09:06→21:21)
[2020-05-07] MEDS ORDERED: ACET-2267 PO (09:33)
--- NOTE | 2020-05-07 09:36 | NUR ---
SPOKE WITH PT AND CALLED [facility] IN [place] TO COMPLETE THE MED REC LEVOTHYROXINE 25MCG LAST FILLED 01-20-2020 #90/90DS- I DID DOCUMENT THE PAST DUE FILL ON THE MED REC OTC MEDS: TYLENOL PRN
[2020-05-07 11:58] VITALS: BP 149/61
--- NOTE | 2020-05-07 12:41 | History & Physical ---
HPI History of Present Illness: 49 yo male presented to ER due to worsening abdominal pain since about a month ago which was initially lower abdomen and is now upper. He reports a history of pancreatitis in the past and he knows he drank too much. He reports he drinks a pint per day usually, last drink a little over 24 hours ago. He has not been abl e to keep down even water. He denies fever except when he had DTs previously. He states he has been in rehab around 5 times. Source: patient Date seen by provider: May 07, 2020 Time Seen by Provider: 09:15 Attending Physician Mary Thomas MD PCP No,Local Physician Consult Date of Admission May 07, 2020 at 07:58 Home Medications Home Medications Reviewed patient Home Medication Reconciliation performed by pharmacy medication reconciliations maintenance shop technician and/or nursing. Patients Allergies have been reviewed. Allergies Coded Allergies: Penicillins (Unverified Allergy, Unknown, 03/20/15) [id number]-[id number]-Jmtism Hx Patient Social History Alcohol Use: Regular Use Recreational Drug Use: No Smoking Status: Current Everyday Smoker Type Used: Cigarettes 2nd Hand Smoke Exposure: Yes Recent Foreign Travel: No Contact w/other who traveled: No Recent Hopitalizations: No Recent Infectious Disease Expo: No Immunizations Up To Date Tetanus Booster (TDap): Unknown Past Medical History PMHx: Alcoholism SurgHx: Arm and leg surgery after an accident Hernia repair Family Medical History Significant Family History: No Pertinent Family Hx Family History: Patient reports no known family medical history. Review of Systems ([facility]) Constitutional: No fever EENTM: No nose congestion, No throat pain Respiratory: No cough Cardiovascular: No chest pain Gastrointestinal: see HPI Genitourinary: No dysuria Skin: No rash Reviewed Test Results Reviewed Test Results Lab Laboratory Tests Test 05/07/20 05:32 Range/Units White Blood Count 13.8 H 4.3-11.0 10^3/uL Red Blood Count 4.74 4.35-5.85 10^6/uL Hemoglobin 15.6 13.3-17.7 G/DL Hematocrit 45 40-54 % Mean Corpuscular Volume 94 80-99 FL Mean Corpuscular Hemoglobin 33 25-34 PG Mean Corpuscular Hemoglobin Concent 35 32-36 G/DL Red Cell Distribution Width 15.0 H 10.0-14.5 % Platelet Count 332 130-400 10^3/uL Mean Platelet Volume 9.1 7.4-10.4 FL Neutrophils (%) (Auto) 87 H 42-75 % Lymphocytes (%) (Auto) 8 L 12-44 % Monocytes (%) (Auto) 4 0-12 % Eosinophils (%) (Auto) 0 0-10 % Basophils (%) (Auto) 0 0-10 % Neutrophils # (Auto) 12.1 H 1.8-7.8 X 10^3 Lymphocytes # (Auto) 1.1 1.0-4.0 X 10^3 Monocytes # (Auto) 0.6 0.0-1.0 X 10^3 Eosinophils # (Auto) 0.0 0.0-0.3 10^3/uL Basophils # (Auto) 0.0 0.0-0.1 10^3/uL Prothrombin Time 12.9 12.2-14.7 SEC INR Comment 0.9 0.8-1.4 Activated Partial Thromboplast Time 29 24-35 SEC Sodium Level 137 135-145 MMOL/L Potassium Level 3.9 3.6-5.0 MMOL/L Chloride Level 98 98-107 MMOL/L Carbon Dioxide Level 16 L 21-32 MMOL/L Anion Gap 23 H 5-14 MMOL/L Blood Urea Nitrogen 12 7-18 MG/DL Creatinine 1.05 0.60-1.30 MG/DL Estimat Glomerular Filtration Rate > 60 BUN/Creatinine Ratio 11 Glucose Level 158 H 70-105 MG/DL Calcium Level 9.4 8.5-10.1 MG/DL Corrected Calcium 8.5-10.1 MG/DL Magnesium Level 1.2 L 1.6-2.4 MG/DL Total Bilirubin 0.9 0.1-1.0 MG/DL Aspartate Amino Transf (AST/SGOT) 29 5-34 U/L Alanine Aminotransferase (ALT/SGPT) 24 0-55 U/L Alkaline Phosphatase 87 40-136 U/L Total Protein 8.6 H 6.4-8.2 GM/DL Albumin 4.6 H 3.2-4.5 GM/DL Amylase Level 544 H 25-125 U/L Lipase 1153 H 8-78 U/L Acetaminophen Level < 10 L 10-30 UG/ML Serum Alcohol < 10 <10 MG/DL Physical Exam-([facility]) Physical Exam Vital Signs VS - Last 72 Hours, by Label 05/07/20 05/07/20 05/07/20 05/07/20 05:32 08:07 08:32 11:58 Temp 36.8 36.3 36.0 Pulse 142 130 134 132 Resp 24 18 18 18 B/P (MAP) 147/113 (124) 161/102 157/93 149/61 (90) Pulse Ox 98 95 96 93 O2 Delivery Room Air Room Air Room Air Capillary Refill : Less Than 3 Seconds General Appearance: no apparent distress Respiratory: lungs clear, normal breath sounds Cardiovascular: regular rate, rhythm, no murmur Gastrointestinal: normal bowel sounds, soft, guarding, tenderness (epigastrid) Extremities: no pedal edema Neurologic/Psychiatric: alert, normal mood/affect Skin: normal color, warm/dry Assessment/Plan Assessment/Plan Admission Status: Inpatient Order (span 2 midnights) Reason for Inpatient Admission: Pancreatitis with high risk for alcohol withdrawal (1) Pancreatitis Status: Acute Assessment & Plan: IVF, NPO, fentanyl prn. Qualifiers: Qualified Codes: K85.20 - Alcohol induced acute pancreatitis without necrosis or infection (2) Alcohol withdrawal Status: Acute Assessment & Plan: Ativan per CIWA protocol Qualifiers: Qualified Codes: F10.230 - Alcohol dependence with withdrawal, uncomplicated (3) DVT prophylaxis Status: Acute Assessment & Plan: SCDs Clinical Quality Measures DVT/VTE Risk/Contraindication: RFS Level Per Nursing on Admit: 0=No Risk/No VTE PPX MARY THOMAS MD May 07, 2020 12:41
[2020-05-07] MEDS ORDERED: MAGNESIUM 1 GM/100 ML IVPB 100 ML IV NR (13:15)
[2020-05-07] MEDS: LORazepam INJ 2 MG/ML (ATIVAN) VIAL IV PRN ×2 (15:47→22:43)
[2020-05-07 16:16] VITALS: BP 162/93
--- NOTE | 2020-05-07 18:23 | NUR ---
MATEO MTZ admitted to room 415-1, with an admitting diagnosis of alcoholic pancreatitis and alchohol withdrawl, on 05/07/20 from ED via wheelchair, accompanied by staff.MATEO MTZ introduced to surroundings, call light, bed controls, phone, TV, temperature control, lights, meal times, smoking policy, visitor policy, side rail policy, bathrooms and showers. Patient Rights given to patient in the handbook. MATEO MTZ verbalizes understanding that [facility] is not responsible for the loss or damage to any personal effects or valuables that are kept in the patients posession during their hospitalization. MATEO MTZ verbalizes understanding of Interdisciplinary Patient Education. Patient and/or family were informed about the Rapid Response Team and its purpose.
[2020-05-07 19:39] VITALS: BP 148/83
[2020-05-08 00:42] VITALS: BP 123/76
[2020-05-08] MEDS: LACTATED RINGERS 1,000 ML IV SCH ×2 (01:26→05:32)
[2020-05-08] MEDS: fentaNYL INJECTION 100 MCG/2 ML AMP IV PRN ×4 (02:02→09:39)
[2020-05-08 04:00] VITALS: BP 129/82
[2020-05-08 05:49] LABS: HEMOGLOBIN 13.8 G/DL (13.3-17.7); MEAN PLATELET VOLUME 9.6 FL (7.4-10.4); RED CELL DISTRIBUTION WIDTH 14.7 % (10.0-14.5); WHITE BLOOD COUNT 12.3 10^3/uL (4.3-11.0)
[2020-05-08 05:55] LABS: ALBUMIN 3.6 GM/DL (3.2-4.5); CHLORIDE 97 MMOL/L (98-107); POTASSIUM 3.8 MMOL/L (3.6-5.0); SODIUM 130 MMOL/L (135-145)
[2020-05-08 05:56] LABS: CALCIUM 8.7 MG/DL (8.5-10.1)
[2020-05-08 05:57] LABS: GLUCOSE 82 MG/DL (70-105); TOTAL PROTEIN 6.7 GM/DL (6.4-8.2)
[2020-05-08 05:58] LABS: CARBON DIOXIDE 22 MMOL/L (21-32)
[2020-05-08 05:59] LABS: BILIRUBIN,TOTAL 1.6 MG/DL (0.1-1.0)
[2020-05-08 06:01] LABS: ALKALINE PHOSPHATASE 63 U/L (40-136); CREATININE SERUM 0.73 MG/DL (0.60-1.30); GFR ESTIMATED > 60
[2020-05-08 06:02] LABS: BUN/CREATININE RATIO 5
[2020-05-08 06:04] LABS: ALANINE AMINOTRANSFERASE 14 U/L (0-55)
[2020-05-08 06:05] LABS: MAGNESIUM 1.4 MG/DL (1.6-2.4)
[2020-05-08 06:06] LABS: LIPASE 406 U/L (8-78)
[2020-05-08] MEDS: LORazepam INJ 2 MG/ML (ATIVAN) VIAL IV PRN ×3 (06:58→10:54)
[2020-05-08] MEDS ORDERED: NS IV 1000 ML 1,000 ML IV SCH (07:45)
[2020-05-08 08:00] VITALS: BP 135/83
[2020-05-08] MEDS ORDERED: MAGNESIUM 1 GM/100 ML IVPB 100 ML IV ONE ×2 (08:20→11:45)
--- NOTE | 2020-05-08 10:05 | NUR ---
PT SCORED 16 ON CIWA SCALE, WAS GIVEN 2MG IV ATIVAN PER PROTOCOL. IN 1HR RECHECKED PT SCORED 7. DR MARTINEZ NOTIFIED OF CIWA SCORE OF 16 AND PT AGITATED AND IMPULSIVE ATTEMPTING TO LEAVE. STAFF HAS BEEN IN ROOM MULTIPLE TIMES TO KEEP PT FROM CRAWLING OUT OF BED. PT REORIENTED AND DEMONSTRATED USE OF CALL LIGHT. TELE SITTER IN PLACE.
--- NOTE | 2020-05-08 11:03 | NUR ---
RESPIRATORY IN ROOM TO SET UP END TITLE CO2
--- NOTE | 2020-05-08 11:15 | NUR ---
PT REMOVED CO2 AND CONTINUOUS PULSE OX, REFUSING TO PUT BACK ON.
--- NOTE | 2020-05-08 11:18 | Progress Note ---
Subjective Subjective/Events-last exam Afebrile, has required 3 mg ativan in last 24 hours. Reports pain is improved. He wants to go home. Objective Exam Last Set of Vital Signs Vital Signs Date Time Temp Pulse Resp B/P (MAP) Pulse Ox O2 Delivery O2 Flow Rate FiO2 05/08/20 11:06 96 Room Air 05/08/20 08:00 37.8 105 16 135/83 (100) Capillary Refill : Less Than 3 Seconds I&O Intake and Output 05/08/20 00:00 Intake Total 2000 ml Output Total 1850 ml Balance 150 ml Intake IV Total 2000 ml Output Urine Total 1850 ml Daily Weight Change No No General: Alert, No Acute Distress Lungs: Clear to Auscultation, Normal Air Movement Heart: Regular Rate, No Murmurs Abdomen: Normal Bowel Sounds, Soft, Other (decreased ttp) Results/Procedures Lab Laboratory Tests 05/08/20 05:05: White Blood Count 12.3H, Red Blood Count 4.20L, Hemoglobin 13.8, Hematocrit 40, Mean Corpuscular Volume 95, Mean Corpuscular Hemoglobin 33, Mean Corpuscular Hemoglobin Concent 35, Red Cell Distribution Width 14.7H, Platelet Count 196, Mean Platelet Volume 9.6, Sodium Level 130L, Potassium Level 3.8, Chloride Level 97L, Carbon Dioxide Level 22, Anion Gap 11, Blood Urea Nitrogen 4L, Creatinine 0.73, Estimat Glomerular Filtration Rate > 60, BUN/Creatinine Ratio 5, Glucose Level 82, Calcium Level 8.7, Corrected Calcium 9.0, Magnesium Level 1.4L, Total Bilirubin 1.6H, Aspartate Amino Transf (AST/SGOT) 28, Alanine Aminotransferase (ALT/SGPT) 14, Alkaline Phosphatase 63, Total Protein 6.7, Albumin 3.6, Lipase 406H Assessment/Plan Assessment/Plan (1) Pancreatitis Status: Acute Assessment & Plan: IVF, NPO, fentanyl prn. 05/08 lipase down significantly, pain improving, will try liquid diet Qualifiers: Qualified Codes: K85.20 - Alcohol induced acute pancreatitis without necrosis or infection (2) Alcohol withdrawal Status: Acute Assessment & Plan: Ativan per [facility] protocol Qualifiers: Qualified Codes: F10.230 - Alcohol dependence with withdrawal, uncomplicated (3) Hyponatremia Status: Acute Assessment & Plan: Change LR to NS. (4) Hypomagnesemia Status: Acute Assessment & Plan: Improved, continue to replace (5) DVT prophylaxis Status: Acute Assessment & Plan: SCDs Clinical Quality Measures DVT/VTE Risk/Contraindication: RFS Level Per Nursing on Admit: 0=No Risk/No VTE PPX MARY MARTINEZ MD May 08, 2020 11:18
--- NOTE | 2020-05-08 11:29 | NUR ---
PT ATTEMPTING TO LEAVE, STATES SEVERAL TIMES THAT "IM JUST PARANOID" AND HE NEEDS TO "GET OUT OF HERE". REORIENTED PT AND LET PT KNOW THE STAFF WERE HERE TO HELP HIM AND JUST WANTING WHAT IS BEST FOR HIM. CALLED PT FATHER, CHERYL WHO SPOKE WITH PT ALSO. PT APPEARED TO CALM DOWN BRIEFLY AFTER TALKING WITH FATHER.
--- NOTE | 2020-05-08 12:58 | NUR ---
LEAD PASTOR IN ROOM, PT INCREASINGLY BECOMING MORE AGITATED AND AGGRESSIVE WITH STAFF. PT UNHOOKED SELF FROM IV AND ATTEMPTING TO REMOVE, PT FATHER NOTIFIED AND COMING TO GET PT. IV WAS REMOVED, AMA PAPERS SIGNED. NURSING CENTER TUTOR AND DR MARTINEZ NOTIFIED OF PT LEAVING AMA.
--- NOTE | 2020-05-08 13:10 | NUR ---
CM/SS attempted to visit with patient for discharge planning. The patient was in the room with Aide and appeared to be agitated/paranoid. CM/SS attempted to visit with patient but he seemed very reluctant to speak with this ss and was become more agitated stating it was "weird" here. He just kept stating he needed to "get out of here". The patient got up out of his bed and tried to go into the hallway but this ss, nurse, and aide helped keep him into a room until mask, wheelchair, and AMA paperwork was signed. He signed paperwork and his father came to pick him up. This ss was unable to discuss any needs.
[2020-05-09] MEDS ORDERED: MAGNESIUM 1 GM/100 ML IVPB 100 ML IV ONE (07:45)
== END 2020-05-08 11:55 | disposition left against medical advice (07) | DRG 439 ==
LOC: EDUNIT# 05:27 → ER 05:28 → 4TH 07:58
PROVIDERS: ADMIT Family Medicine; ATTEND Family Medicine
DX: K85.20 Alcohol induced acute pancreatitis without necrosis or infection (principal); F10.230 Alcohol dependence with withdrawal, uncomplicated; E87.1 Hypo-osmolality and hyponatremia; E83.42 Hypomagnesemia
CPT/HCPCS: 36415; 80053; 80320; 80329; 82150; 83690; 83735; 85025; 85027; 85610; 85730; 93041; 94760

== ENCOUNTER 2021-03-15 12:24 | Emergency (ER) | payer SELFPAY ==
[~2021-03-15] VITALS: Ht 175.3 cm; Wt 65.7 kg
[~2021-03-15 12:24] MED LIST changes: +ACET-2267 PO
--- NOTE | 2021-03-15 12:51 | ED Abdominal Pain ---
General Chief Complaint: Abdominal/GI Problems Stated Complaint: ETOH W/D, ACUTE PANCREATITIS Source of Information: Patient Exam Limitations: No Limitations History of Present Illness Date Seen by Provider: Mar 15, 2021 Time Seen by Provider: 12:30 Initial Comments To ER by private vehicle from [facility] with reports of epigastric abdominal pain and alcohol withdrawal. He has a history of pancreatitis and this upper abdominal pain associated with nausea and vomiting started 48 hours ago which prompted him to quit drinking. Prior to this he drank 1/5 of vodka daily. He smokes 1/2 pack of cigarettes per day. Unable to eat or drink much because of nausea. Timing/Duration: 1-2 Days Severity/Quality: Cramping Location: Epigastric Radiation: No Radiation Activities at Onset: None Associated Symptoms: Nausea/Vomiting Allergies and Home Medications Allergies Coded Allergies: Penicillins (Unverified Allergy, Unknown, 03/20/15) fentanyl (Verified Adverse Reaction, Unknown, behavioral, 03/15/21) Home Medications Acetaminophen 500 Mg Tablet, 1,000 MG PO Q8H PRN for PAIN-MILD (1-4), (Reported) Levothyroxine Sodium 25 Mcg Tablet, 25 MCG PO DAILY, (Reported) LAST FILLED 01-20-2020 #90 Patient Home Medication List Home Medication List Reviewed: Yes Review of Systems Review of Systems Constitutional: see HPI EENTM: No Symptoms Reported Respiratory: No Symptoms Reported Cardiovascular: No Symptoms Reported Gastrointestinal: See HPI, Abdominal Pain, Nausea, Vomiting Genitourinary: No Symptoms Reported Musculoskeletal: no symptoms reported Skin: no symptoms reported Psychiatric/Neurological: No Symptoms Reported Endocrine: No Symptoms Reported Hematologic/Lymphatic: No Symptoms Reported Past Yeyosgi-Qzxjch-Xhlrkn Hx Patient Social History Alcohol Beverage of Choice: Beer, Whiskey, Vodka Type Used: Cigarettes 2nd Hand Smoke Exposure: Yes Recent Hopitalizations: No Immunizations Up To Date Tetanus Booster (TDap): Unknown PED Vaccines UTD: Yes Seasonal Allergies Seasonal Allergies: Yes Past Medical History Surgeries: Yes (HERNIA REPAIR) Appendectomy, Orthopedic, Tonsillectomy Respiratory: No Cardiac: No Neurological: No Reproductive Disorders: No Genitourinary: No Gastrointestinal: Yes Abdominal Hernia, Pancreatitis Musculoskeletal: No Endocrine: No HEENT: No Cancer: No Psychosocial: No Integumentary: No Blood Disorders: No Family Medical History Patient reports no known family medical history. No Pertinent Family Hx Physical Exam Vital Signs Vital Signs - First Documented 03/15/21 12:30 Pulse 109 Resp 18 B/P (MAP) 158/104 (122) Pulse Ox 98 O2 Delivery Room Air Capillary Refill : Height/Weight/BMI Height: 5'9.00" Weight: 147lbs. 4.0oz. 66.675866kh; 23.46 BMI Method:Stated General Appearance: WD/WN, no apparent distress, other (Anxious appearing, hypertensive tachycardic, tremulous) Neck: non-tender, full range of motion Respiratory: normal breath sounds, no respiratory distress, no accessory muscle use Cardiovascular: no murmur, tachycardia Gastrointestinal: normal bowel sounds, non tender, soft Extremities: normal range of motion, non-tender Neurologic/Psychiatric: alert, normal mood/affect, oriented x 3 Skin: normal color, warm/dry Progress/Results/Core Measures Results/Orders Lab Results Laboratory Tests Test 03/15/21 12:45 Range/Units White Blood Count 8.6 4.3-11.0 10^3/uL Red Blood Count 4.45 4.30-5.52 10^6/uL Hemoglobin 15.0 13.3-17.7 g/dL Hematocrit 46 40-54 % Mean Corpuscular Volume 103 H 80-99 fL Mean Corpuscular Hemoglobin 34 25-34 pg Mean Corpuscular Hemoglobin Concent 33 32-36 g/dL Red Cell Distribution Width 14.4 10.0-14.5 % Platelet Count 128 L 130-400 10^3/uL Mean Platelet Volume 10.5 9.0-12.2 fL Immature Granulocyte % (Auto) 0 % Neutrophils (%) (Auto) 78 H 42-75 % Lymphocytes (%) (Auto) 12 12-44 % Monocytes (%) (Auto) 9 0-12 % Eosinophils (%) (Auto) 0 0-10 % Basophils (%) (Auto) 0 0-10 % Neutrophils # (Auto) 6.7 1.8-7.8 10^3/uL Lymphocytes # (Auto) 1.0 1.0-4.0 10^3/uL Monocytes # (Auto) 0.8 0.0-1.0 10^3/uL Eosinophils # (Auto) 0.0 0.0-0.3 10^3/uL Basophils # (Auto) 0.0 0.0-0.1 10^3/uL Immature Granulocyte # (Auto) 0.0 0.0-0.1 10^3/uL Prothrombin Time 13.0 12.2-14.7 SEC INR Comment 0.9 0.8-1.4 Sodium Level 135 135-145 MMOL/L Potassium Level 3.3 L 3.6-5.0 MMOL/L Chloride Level 92 L 98-107 MMOL/L Carbon Dioxide Level 22 21-32 MMOL/L Anion Gap 21 H 5-14 MMOL/L Blood Urea Nitrogen 14 7-18 MG/DL Creatinine 0.86 0.60-1.30 MG/DL Estimat Glomerular Filtration Rate > 60 BUN/Creatinine Ratio 16 Glucose Level 106 H 70-105 MG/DL Calcium Level 9.8 8.5-10.1 MG/DL Corrected Calcium 8.5-10.1 MG/DL Total Bilirubin 1.4 H 0.1-1.0 MG/DL Aspartate Amino Transf (AST/SGOT) 54 H 5-34 U/L Alanine Aminotransferase (ALT/SGPT) 37 0-55 U/L Alkaline Phosphatase 88 40-136 U/L Total Protein 8.8 H 6.4-8.2 GM/DL Albumin 4.7 H 3.2-4.5 GM/DL Lipase 203 H 8-78 U/L Beta-Hydroxybutyrate (Chem panel) 4.83 H 0.00-0.27 MMOL/L My Orders Orders - MERARI HORN APRN Cbc With Automated Diff (03/15/21 12:48) Comprehensive Metabolic Panel (03/15/21 12:48) Protime With Inr (03/15/21 12:48) Lipase (03/15/21 12:48) Ua Culture If Indicated (03/15/21 12:48) Drug Screen Stat (Urine) (03/15/21 12:48) Ed Iv/Invasive Line Start (03/15/21 12:48) Ct Abdomen/Pelvis W (03/15/21 12:48) Lactated Ringers (Lr 1000 Ml Iv Solution (03/15/21 13:00) Ketorolac Injection (Toradol Injection) (03/15/21 13:00) Lorazepam Injection (Ativan Injection) (03/15/21 13:00) Antacid Suspension (Mylanta Suspension (03/15/21 13:15) Lidocaine 2% Viscous 15 Ml (Xylocaine Vi (03/15/21 13:15) Antacid Suspension (Mylanta Suspension (03/15/21 12:56) Lidocaine 2% Viscous 15 Ml (Xylocaine Vi (03/15/21 12:56) Beta Hydroxybutyrate (03/15/21 13:24) Iohexol Injection (Omnipaque 350 Mg/Ml 1 (03/15/21 14:15) Received Contrast (Hold Metformin- Contr (03/15/21 14:15) Sodium Chloride Flush (Catheter Flush Sy (03/15/21 14:15) Ns (Ivpb) (Sodium Chloride 0.9% Ivpb Bag (03/15/21 14:15) Lactated Ringers (Lr 1000 Ml Iv Solution (03/15/21 14:30) Lorazepam Injection (Ativan Injection) (03/15/21 14:30) Medications Given in ED Current Medications Medications Dose Ordered Sig/Valeria Route Start Time Stop Time Status Last Admin Dose Admin Al Hydrox/Mg Hydrox/Simethicone 30 ml ONCE ONCE PO 03/15/21 13:15 03/15/21 13:16 DC 03/15/21 14:16 30 ML Iohexol 100 ml ONCE ONCE IV 03/15/21 14:15 03/15/21 14:16 DC 03/15/21 14:19 75 ML Ketorolac Tromethamine 15 mg ONCE ONCE IVP 03/15/21 13:00 03/15/21 13:01 DC 03/15/21 12:58 15 MG Lidocaine HCl 10 ml ONCE ONCE PO 03/15/21 13:15 03/15/21 13:16 DC 03/15/21 14:16 10 ML Lorazepam 1 mg ONCE ONCE IVP 03/15/21 14:30 03/15/21 14:31 DC 03/15/21 14:34 1 MG Lorazepam 2 mg ONCE ONCE IVP 03/15/21 13:00 03/15/21 13:01 DC 03/15/21 12:58 2 MG Sodium Chloride 10 ml NEEDED PRN IV 03/15/21 14:15 03/15/21 14:19 10 ML Sodium Chloride 100 ml ONCE ONCE IV 03/15/21 14:15 03/15/21 14:16 DC 03/15/21 14:19 80 ML Vital Signs/I&O 03/15/21 12:30 Pulse 109 Resp 18 B/P (MAP) 158/104 (122) Pulse Ox 98 O2 Delivery Room Air Diagnostic Imaging Diagonstic Imaging: CT Comments NAME: MATEO [facility] REC#: [id number] PT STATUS: REG ER : 1970 PHYSICIAN: MERARI HORN K [employer] ADMIT DATE: 03/15/21/ER Draft Date of Exam:03/15/21 CT ABDOMEN/PELVIS W EXAMINATION: CT abdomen and pelvis with intravenous contrast. TECHNIQUE: Multiple contiguous axial images were obtained through the abdomen and pelvis after the uneventful administration of intravenous contrast. All CT scans use one or more of the following dose optimizing techniques: automated exposure control, MA and/or KvP adjustment based on patient size and exam type or iterative reconstruction. HISTORY: Upper abdominal pain COMPARISON: CT abdomen and pelvis 04/05/2020 FINDINGS: Lung bases: The lung bases are clear. Solid organs: There is diffuse hypoattenuation of the liver compatible with hepatic steatosis. The gallbladder is normal. There is no biliary ductal dilation. There may be minimal peripancreatic fat stranding near the head of the pancreas. The pancreas is otherwise unremarkable. Spleen is normal. Adrenal glands are normal. The kidneys are normal without hydronephrosis. Bowel: The stomach and small bowel are normal without obstruction. There is scattered colonic diverticulosis. The appendix is normal. Peritoneum: There is no intraperitoneal free fluid or free air. No suspicious lymphadenopathy. Vasculature: Calcification of the aorta without aneurysm. Musculoskeletal: Surgical changes of the left femur. No suspicious osseous lesion or compression fracture. Pelvis: The prostate gland is normal. The urinary bladder is normal. IMPRESSION: 1. Minimal fat stranding near the head of pancreas which could be seen with acute pancreatitis in the appropriate clinical setting. Recommend correlation with laboratory values and clinical history. 2. Hepatic steatosis. 3. Colonic diverticulosis without findings of diverticulitis. Dictated on workstation # [id number] Dict: 03/15/21 1433 Trans: 03/15/21 1437 [facility] [id number] Interpreted by: CANELO MCKEON DO Electronically signed by: Departure Communication (Admissions) [id number]-feeling much better after 2 mg of Ativan 50 mg of Toradol. The GI cocktail seemed very helpful for the epigastric abdominal pain. This epigastric pain may be more related to a gastritis than the pancreatitis. His lipase is minimally elevated at 200, there is minimal stranding around the head of the pancreas on CT. He is going to receive a second liter of IV fluids, more lorazepam and I can send him home on a Librium taper (this would be his preference he states). He does not have any history of withdrawal seizures or delirium. 1453-I spoke with Dr. Ivy on-call for [facility], agrees with o utpatient treatment with some nausea medication and Librium. As long as patient can tolerate some oral fluids before discharge that he can go home. If he returns for worsening symptoms then he will obviously need to be admitted. Impression Primary Impression: Mild pancreatitis Additional Impression: Alcohol withdrawal Disposition: 01 HOME, SELF-CARE Condition: Improved Departure-Patient Inst. Decision time for Depature: 14:26 Referrals: [facility] (PCP/Family) Primary Care Physician Patient Instructions: Alcohol Withdrawal, Pancreatitis (DC) Add. Discharge Instructions: 1. Return to ER for any concerns. Follow-up with your doctor next week. Clear liquids for the next 24 hours. Do not drink any alcohol. Take the withdrawal medications as directed. Take nausea medication as directed. On the first day he will take the Librium 4 times a day (36 hours. On the second day you will take it every 8 hours. On the third day it will take it every 12 hours and on the fourth day it will take it at bedtime. Return to ER for any intolerable withdrawal symptoms, vomiting or intolerable pain. All discharge instructions reviewed with patient and/or family. Voiced understanding. Scripts Chlordiazepoxide HCl (Chlordiazepoxide HCl) 25 Mg Capsule 25 MG PO UD, #20 CAP Day one two tabs every 6 hours Day two two tabs every 8 hours Day three two tabs every 12 hours Day four two tabs at bedtime Prov: MERARI HORN APRN 03/15/21 Ondansetron (Ondansetron Odt) 8 Mg Tab.rapdis 8 MG PO Q6H PRN for NAUSEA/VOMITING, #14 TAB Prov: MERARI HORN APRN 03/15/21 Pantoprazole Sodium (Protonix) 40 Mg Tablet.dr 40 MG PO DAILY, #14 TAB Prov: MERARI HORN APRN 03/15/21 MERARI HORN K [employer] Mar 15, 2021 12:51
[2021-03-15] MEDS ORDERED: LIDOCAINE 2% VISCOUS 15 ML UDC ONE (12:56)
[2021-03-15] MEDS ORDERED: ANTACID SUSP 30 ML UDC (MYLANTA) ONE (12:56)
[2021-03-15 12:57] LABS: BASOPHILS % (AUTO) 0 % (0-10); EOSINOPHILS % (AUTO) 0 % (0-10); HEMATOCRIT 46 % (40-54); LYMPHOCYTES % (AUTO) 12 % (12-44); MEAN CORPUSCULAR HEMOGLOBIN 34 pg (25-34); MEAN CORPUSCULAR HGB CONC 33 g/dL (32-36); MEAN CORPUSCULAR VOLUME 103 fL (80-99); MEAN PLATELET VOLUME 10.5 fL (9.0-12.2); MONOCYTES # (AUTO) 0.8 10^3/uL (0.0-1.0); MONOCYTES % (AUTO) 9 % (0-12); NEUTROPHILS # (AUTO) 6.7 10^3/uL (1.8-7.8); NEUTROPHILS % (AUTO) 78 % (42-75); PLATELET COUNT 128 10^3/uL (130-400); WHITE BLOOD COUNT 8.6 10^3/uL (4.3-11.0)
[2021-03-15] MEDS ORDERED: KETOROLAC 30 MG/ML VIAL IVP ONE (13:00)
[2021-03-15] MEDS ORDERED: LORazepam INJ 2 MG/ML (ATIVAN) VIAL IVP ONE ×2 (13:00→14:30)
[2021-03-15] MEDS ORDERED: LACTATED RINGERS 1,000 ML IV SCH ×2 (13:00→14:30)
[2021-03-15 13:12] LABS: INR 0.9 (0.8-1.4)
[2021-03-15] MEDS ORDERED: LIDOCAINE 2% VISCOUS 15 ML UDC PO ONE (13:15)
[2021-03-15] MEDS ORDERED: ANTACID SUSP 30 ML UDC (MYLANTA) PO ONE (13:15)
[2021-03-15 13:21] LABS: ALANINE AMINOTRANSFERASE 37 U/L (0-55); ALBUMIN 4.7 GM/DL (3.2-4.5); ALKALINE PHOSPHATASE 88 U/L (40-136); BILIRUBIN,TOTAL 1.4 MG/DL (0.1-1.0); BUN/CREATININE RATIO 16; CALCIUM 9.8 MG/DL (8.5-10.1); CARBON DIOXIDE 22 MMOL/L (21-32); CHLORIDE 92 MMOL/L (98-107); CREATININE SERUM 0.86 MG/DL (0.60-1.30); GFR ESTIMATED > 60; GLUCOSE 106 MG/DL (70-105); LIPASE 203 U/L (8-78); POTASSIUM 3.3 MMOL/L (3.6-5.0); SODIUM 135 MMOL/L (135-145); TOTAL PROTEIN 8.8 GM/DL (6.4-8.2)
[2021-03-15] MEDS ORDERED: CATHETER FLUSH 10 ML SYR IV PRN (14:15)
[2021-03-15] MEDS ORDERED: IOHEXOL 350 MG/ML 100 ML (OMNIPAQUE 350) VIAL IV ONE (14:15)
[2021-03-15] MEDS ORDERED: HOLD METFORMIN - RECEIVED CONTRAST 20 ML VIAL IV SCH (14:15)
[2021-03-15] MEDS ORDERED: NS 100 ML (IVPB) BAG IV ONE (14:15)
--- NOTE | 2021-03-15 14:38 | Diagnostic Imaging Report ---
EXAMINATION: CT abdomen and pelvis with intravenous contrast. TECHNIQUE: Multiple contiguous axial images were obtained through the abdomen and pelvis after the uneventful administration of intravenous contrast. All CT scans use one or more of the following dose optimizing techniques: automated exposure control, MA and/or KvP adjustment based on patient size and exam type or iterative reconstruction. HISTORY: Upper abdominal pain COMPARISON: CT abdomen and pelvis 04/05/2020 FINDINGS: Lung bases: The lung bases are clear. Solid organs: There is diffuse hypoattenuation of the liver compatible with hepatic steatosis. The gallbladder is normal. There is no biliary ductal dilation. There may be minimal peripancreatic fat stranding near the head of the pancreas. The pancreas is otherwise unremarkable. Spleen is normal. Adrenal glands are normal. The kidneys are normal without hydronephrosis. Bowel: The stomach and small bowel are normal without obstruction. There is scattered colonic diverticulosis. The appendix is normal. Peritoneum: There is no intraperitoneal free fluid or free air. No suspicious lymphadenopathy. Vasculature: Calcification of the aorta without aneurysm. Musculoskeletal: Surgical changes of the left femur. No suspicious osseous lesion or compression fracture. Pelvis: The prostate gland is normal. The urinary bladder is normal. IMPRESSION: 1. Minimal fat stranding near the head of pancreas which could be seen with acute pancreatitis in the appropriate clinical setting. Recommend correlation with laboratory values and clinical history. 2. Hepatic steatosis. 3. Colonic diverticulosis without findings of diverticulitis. Dictated by: Dictated on workstation # [id number]
[2021-03-15] MEDS ORDERED: PANT40TA2 PO (15:05)
[2021-03-15] MEDS ORDERED: CHLO25CA10 PO (15:05)
[2021-03-15] MEDS ORDERED: ONDA8TAB13 PO (15:05)
[2021-03-15 15:20] VITALS: BP 146/97
[2021-03-15 16:37] LABS: SMEAR SCAN COMMENT YES
== END 2021-03-15 15:20 | disposition home or self-care (01) ==
LOC: EDUNIT# 12:24 → ER 12:26
DX: K85.90 Acute pancreatitis without necrosis or infection, unspecified (principal); F10.239 Alcohol dependence with withdrawal, unspecified; Z77.22 Contact with and (suspected) exposure to environmental tobacco smoke (acute) (chronic); Z88.0 Allergy status to penicillin; Z88.8 Allergy status to other drugs, medicaments and biological substances
CPT/HCPCS: 36415; 74177; 80053; 82010; 83690; 85025; 85610